=== PATIENT | male | born 1945 | race Caucasian/White ===

== ENCOUNTER 2017-10-11 11:33 | Emergency (ER) | payer OTHER ==
--- NOTE | 2017-10-11 12:17 | EDPHY ---
H & P Stated Complaint: L sided abd pain since early this morning, vom seveal times Time Seen by Provider: 10/11/17 11:53 HPI/ROS: CHIEF COMPLAINT: Left flank pain, vomiting HISTORY OF PRESENT ILLNESS: The patient presents to the ED with complaints of left flank pain and vomiting. The patient's symptoms began at 4 o'clock in the morning. He denies prior history of the symptoms. He denies history of abdominal pain or prior kidney stone. The patient has a history of prostate cancer. The patient denies hematuria or dysuria. The patient reports he has vomited 5 times today. The patient reports his pain is moderate in nature. REVIEW OF SYSTEMS: A comprehensive 10 point review of systems is otherwise negative aside from elements mentioned in the history of present illness. Source: Patient Exam Limitations: No limitations - Personal History Current Tetanus Diphtheria and Acellular Pertussis (TDAP): Yes - Medical/Surgical History Hx Diabetes: No Other PMH: prostatectomy, prostate CA, osteoporosis, Lt hip resurfacing, Lt achilies repair, HTN, Hyperlipidemia - Social History Smoking Status: Former smoker - Physical Exam Exam: General Appearance: Alert, no distress Eyes: Pupils equal and round no pallor or injection ENT, Mouth: Mucous membranes moist Respiratory: There are no retractions, lungs are clear to auscultation Cardiovascular: Regular rate and rhythm Gastrointestinal: Tenderness to palpation in the left mid quadrant, left CVA tenderness Neurological: 5/5 strength bilateral lower extremities Skin: Warm and dry, no rashes Musculoskeletal: Neck is supple nontender Extremities: symmetrical, full range of motion Psychiatric: Patient is oriented X 3, there is no agitation Constitutional: Initial Vital Signs Temperature (C) 36.6 C 10/11/17 11:35 Heart Rate 92 10/11/17 11:35 Respiratory Rate 18 10/11/17 11:35 Blood Pressure 146/104 H 10/11/17 11:35 O2 Sat (%) 93 10/11/17 11:35 O2 Delivery Mode Room Air Allergies/Adverse Reactions: No Known Allergies Allergy (Verified 10/11/17 11:43) Home Medications: Medication Instructions Recorded Acyclovir [Zovirax 200 mg (*)] 200 mg PO 10/11/17 Diazepam [Valium 5 MG (*)] 5 mg PO 10/11/17 Hydrocodone/APAP 5/325 [[place] 1 tab PO 10/11/17 5/325 (*)] Lisinopril 20 mg PO 10/11/17 Meloxicam 10/11/17 Omeprazole 40 mg PO 10/11/17 Ondansetron Odt [Zofran Odt] 4 mg PO Q4PRN PRN #20 tab 10/11/17 Tamsulosin HCl [Flomax 0.4 MG (*)] 0.4 mg PO DAILY #10 cap 10/11/17 Testosterone IM [Testosterone 100 mg IM 10/11/17 100mg/ml IM inj (*)] Wellchol 10/11/17 Medical Decision Making - Diagnostics Imaging Results: Imaging Impressions Abdomen/Pelvis CT 10/11/17 12:13 Impression: Punctate left pelvic calculus, either in the ureteral orifice or having just passed into the urinary bladder. Results called and discussed with Evgeny Lozada, at 10/11/2017 13:20 Attention: This CT examination is specifically designed to evaluate patients who are clinically suspected of having acute obstructive uropathy. This examination does not use radiographic contrast, and as such, provides only a limited evaluation of the abdomen, pelvis and retroperitoneum. If there is further clinical suspicion for pathological conditions other than obstructive uropathy, a complete CT evaluation of the abdomen and pelvis utilizing intravenous, oral, and rectal contrast should be considered. General information for patients regarding this examination can be found at [email or web address]. If you have questions or comments about this report, please contact me at (hospital) or [phone] (cell). ED Course/Re-evaluation: The patient presents the ED with complaints of acute left flank pain and vomiting. The patient had an IV established. Once a normal creatinine was verified the patient received 15 mg of IV Toradol. The patient had taken oral narcotics prior to arrival. The patient was taken for a stat CT scan of the abdomen pelvis which demonstrates a very small left distal ureteral stone which is quite close to passing. The patient also received oral Flomax. Patient was re-evaluated at 2:30 p.m.. He has been informed of the diagnosis of a very small distal left ureteral stone. He is comfortable being discharged home with customary aftercare instructions. Differential Diagnosis: Differential diagnosis considered includes nephrolithiasis, ureterolithiasis, pyelonephritis, myofascial strain, abdominal aortic aneurysm - Data Points Laboratory Results: Laboratory Results 10/11/17 11:55 10/11/17 11:55 10/11/1718 10/11/17 12:30 11:55 11:55 WBC 12.90 10^3/uL H 10^3/uL (3.80-9.50) RBC 4.88 10^6/uL 10^6/uL (4.40-6.38) Hgb 15.4 g/dL g/dL (13.7-17.5) Hct 45.3 % % (40.0-51.0) MCV 92.8 fL fL (81.5-99.8) MCH 31.6 pg pg (27.9-34.1) MCHC 34.0 g/dL g/dL (32.4-36.7) RDW 13.4 % % (11.5-15.2) Plt Count 231 10^3/uL 10^3/uL (150-400) MPV 8.9 fL fL (8.7-11.7) Neut % (Auto) 92.4 % H % (39.3-74.2) Lymph % (Auto) 3.0 % L % (15.0-45.0) Cotton % (Auto) 4.0 % L % (4.5-13.0) Eos % (Auto) 0.0 % L % (0.6-7.6) Baso % (Auto) 0.2 % L % (0.3-1.7) Nucleat RBC Rel Count 0.0 % % (0.0-0.2) Absolute Neuts (auto) 11.92 10^3/uL H 10^3/uL (1.70-6.50) Absolute Lymphs (auto) 0.39 10^3/uL L 10^3/uL (1.00-3.00) Absolute Monos (auto) 0.52 10^3/uL 10^3/uL (0.30-0.80) Absolute Eos (auto) 0.00 10^3/uL L 10^3/uL (0.03-0.40) Absolute Basos (auto) 0.03 10^3/uL 10^3/uL (0.02-0.10) Absolute Nucleated RBC 0.00 10^3/uL 10^3/uL (0-0.01) Immature Gran % 0.4 % % (0.0-1.1) Immature Gran # 0.05 10^3/uL 10^3/uL (0.00-0.10) Platelet Estimate Pending Sodium 140 mEq/L mEq/L (135-145) Potassium 4.1 mEq/L mEq/L (3.3-5.0) Chloride 107 mEq/L mEq/L (97-110) Carbon Dioxide 25 mEq/l mEq/l (22-31) Anion Gap 8 mEq/L mEq/L (8-16) BUN 19 mg/dL mg/dL (7-23) Creatinine 1.2 mg/dL mg/dL (0.7-1.3) Estimated GFR 60 Glucose 127 mg/dL H mg/dL (70-100) Calcium 10.0 mg/dL mg/dL (8.5-10.4) Urine Color YELLOW Urine Appearance CLEAR Urine pH 5.0 (5.0-7.5) Ur Specific [place] 1.027 (1.002-1.030) Urine Protein NEGATIVE (NEGATIVE) Urine Ketones NEGATIVE (NEGATIVE) Urine Blood NEGATIVE (NEGATIVE) Urine Nitrate NEGATIVE (NEGATIVE) Urine Bilirubin NEGATIVE (NEGATIVE) Urine Urobilinogen NEGATIVE EU EU (0.2-1.0) Ur Leukocyte Esterase NEGATIVE (NEGATIVE) Urine Glucose NEGATIVE (NEGATIVE) Medications Given: Discontinued Medications Ketorolac Tromethamine (Toradol) 15 mg IVP EDNOW ONE Stop: 10/11/17 13:16 Last Admin: 10/11/17 13:35 Dose: 15 mg Tamsulosin HCl (Flomax) 0.4 mg PO EDNOW ONE Stop: 10/11/17 13:26 Last Admin: 10/11/17 13:45 Dose: 0.4 mg Departure - Departure Disposition: Home, Routine, Self-Care Clinical Impression: Renal colic on left side Condition: Good Instructions: Renal Colic (ED) Additional Instructions: 1. Take Ibuprofen or Motrin 600 mg by mouth three times a day. 2. [place] as needed for severe pain 3. Flomax as directed 4. Zofran as needed for nausea 5. Strain urine as directed 6. Return to the Emergency Department for intractable pain, fever or vomiting. 7. Followup with the urologist you have been referred to for unimproved symptoms. Referrals: Kedar Kelsey PA [Primary Care Provider] - As per Instructions Prescriptions: Ondansetron Odt [Zofran Odt] 4 mg PO Q4PRN PRN #20 tab PRN Reason: For Nausea Tamsulosin HCl [Flomax 0.4 MG (*)] 0.4 mg PO DAILY #10 cap
[2017-10-11 12:25] LABS: PLATELET COUNT 231 10^3/uL (150-400)
[2017-10-11] MEDS ORDERED: KETOROLAC 15 MG/1 ML SDV IVP ONE (13:15)
[2017-10-11] MEDS ORDERED: TAMSULOSIN HCL 0.4 MG CAP PO ONE (13:25)
[2017-10-11 14:31] VITALS: BP 158/87
== END 2017-10-11 14:29 | disposition home or self-care (01) ==
DX: N23 Unspecified renal colic (principal); I10 Essential (primary) hypertension; Z85.46 Personal history of malignant neoplasm of prostate; Z87.891 Personal history of nicotine dependence
CPT/HCPCS: 74176; 96374; 99285; J1885

== ENCOUNTER 2018-05-23 11:15 | Emergency (ER) | payer OTHER ==
--- NOTE | 2018-05-23 11:28 | EDPHY ---
H & P Stated Complaint: feeling "constipated and impacted" ankle surgery 4 days ago Time Seen by Provider: 05/23/18 11:28 - Medical/Surgical History Hx Asthma: No Hx Chronic Respiratory Disease: No Hx Diabetes: No Hx Cardiac Disease: No Hx Renal Disease: No Hx Cirrhosis: No Hx Alcoholism: No Hx HIV/AIDS: No Hx Splenectomy or Spleen Trauma: No Other PMH: prostatectomy, prostate CA, osteoporosis, HTN, Hyperlipidemia - Social History Smoking Status: Former smoker Constitutional: Initial Vital Signs Temperature (C) 36.7 C 05/23/18 11:18 Heart Rate 88 05/23/18 11:18 Respiratory Rate 18 05/23/18 11:18 Blood Pressure 154/78 H 05/23/18 11:18 O2 Sat (%) 94 05/23/18 11:18 O2 Delivery Mode Room Air Allergies/Adverse Reactions: No Known Allergies Allergy (Verified 10/11/17 11:43) Home Medications: Medication Instructions Recorded Acyclovir [Zovirax 200 mg (*)] 200 mg PO 10/11/17 Diazepam [Valium 5 MG (*)] 5 mg PO 10/11/17 Hydrocodone/APAP 5/325 [[place] 1 tab PO 10/11/17 5/325 (*)] Lisinopril 20 mg PO 10/11/17 Meloxicam 10/11/17 Omeprazole 40 mg PO 10/11/17 Ondansetron Odt [Zofran Odt] 4 mg PO Q4PRN PRN #20 tab 10/11/17 Tamsulosin HCl [Flomax 0.4 MG (*)] 0.4 mg PO DAILY #10 cap 10/11/17 Testosterone IM [Testosterone 100 mg IM 10/11/17 100mg/ml IM inj (*)] Wellchol 10/11/17 Magnesium Citrate [Magnesium 300 ml PO ONCE #1 bottle 05/23/18 Citrate 300 ml (*)] Medical Decision Making ED Course/Re-evaluation: CHIEF COMPLAINT: Constipation HISTORY OF PRESENT ILLNESS: The patient is a 72 y/o male arriving with his friend complaining of constipation following an ankle surgery four days ago. He was under general anesthesia in addition to local nerve block for this procedure. He has taken one dose of narcotic pain medication since returning home and now feels constipated and "impacted." He has been using milk of magnesia and suppositories to treat symptoms. Upon assessment, he says, "I'm sitting here pooping in my pants." He denies abdominal pain, vomiting, fever, urinary symptoms, or other complaints. REVIEW OF SYSTEMS: A comprehensive 10 system review of systems is otherwise negative aside from elements mentioned in the history of present illness and medical decision making. PHYSICAL EXAM: HR, BP, O2 Sat, RR. Temp noted General Appearance: Alert, well hydrated, appropriate, and non-toxic appearing. Head: Atraumatic without scalp tenderness or obvious injury Eyes: Pupils equal, round, reactive to light and accommodation, EOMI, no trauma , no injection. Nose: Atraumatic, no rhinorrhea, clear. Throat: Mucus membranes moist. Neck: Supple, nontender, no lymphadenopathy. Respiratory: No retractions, no distress, no wheezes, and no accessory muscle use. Lungs are clear to auscultation bilaterally. Cardiovascular: Regular rate and rhythm, no murmurs, rubs, or gallops. Good capillary refill all extremities. Gastrointestinal: Abdomen is soft, nontender, non-distended, no masses, no rebound, no guarding, no peritoneal signs. Musculoskeletal: Normal active ROM of all extremities, atraumatic. Splint on right ankle limiting ROM. Neurological: Alert, appropriate, and interactive. The patient has non-focal cranial nerves, motor, sensory, and cerebellar exam. Skin: No rashes, good turgor, no nodules on palpation. Past medical history: Prostate CA, osteoporosis, hypertension, Hyperlipidemia Past surgical history: Prostatectomy, right ankle surgery with Dr. Ybarra. Family history: Noncontributory Social history: Friend at bedside. Retired. Lives in [place]. DIFFERENTIAL DIAGNOSIS: The differential diagnosis for the patient's symptoms included but was not limited to drug-induced constipation, slow-transit constipation, bowel obstruction, gastroenteritis, gastritis, appendicitis, and medication side effect. MEDICAL DECISION MAKING: This is a 72 y/o male who presents with constipation in the setting of recent surgery and narcotic use; however, he is passing stool in the bed upon assessment here. His abdomen is benign and he has not vomited nor has evidence of infection. His symptoms are improving without further treatment here. He has had multiple bowel movements here, but is still concerned he is constipated. I've written a script for Yasmine for him to use at home for continued symptoms. Plan for discharge home with standard care and follow up instructions. Departure - Departure Disposition: Home, Routine, Self-Care Clinical Impression: resolved Constipation Qualifiers: Constipation type: other constipation type Qualified Code(s): K59.09 - Other constipation Condition: Good Instructions: Constipation (ED) Additional Instructions: Use Yasmine as prescribed if needed. Continue home constipation treatments as needed. I recommend increasing fluid and fiber intake and using Miralax as directed on the packaging as needed. Follow up with your surgeon as planned. Return for worsening of condition. Referrals: Jaylen Collier MD [Medical Doctor] - As per Instructions Prescriptions: Magnesium Citrate [Magnesium Citrate 300 ml (*)] 300 ml PO ONCE #1 bottle Report Scribed for: Florentino Amor Report Scribed by: Bharti Gibbs Date of Report: 05/23/18 Time of Report: 11:36
[2018-05-23 13:12] VITALS: BP 136/82
== END 2018-05-23 13:21 | disposition home or self-care (01) ==
DX: K59.00 Constipation, unspecified (principal); I10 Essential (primary) hypertension; E78.5 Hyperlipidemia, unspecified; Z98.890 Other specified postprocedural states; Z85.46 Personal history of malignant neoplasm of prostate

== ENCOUNTER → 2018-11-04 | Outpatient (CLI) | payer OTHER | LOC: BHFA 14:00 ==